=== PATIENT | male | born 1955 | race African-American/Black ===

== ENCOUNTER 2017-05-30 10:20 | Emergency (ER) | payer MEDICARE, OTHER ==
[2017-05-30 10:49] LABS: #Basophils 0.1 thou/uL (0.0-0.2); #Eosinphils 0.2 thou/uL (0.0-0.7); #Lymphocytes 2.9 thou/uL (1.20-3.40); #Monocytes 0.5 thou/uL (0.11-0.59); %Basophils 1.3 % (0.0-1.0); %Eosinophils 2.8 % (0.0-10.0); %Lymphocytes 37.4 % (21.0-51.0); %Monocytes 6.1 % (0.0-10.0); %Neutrophils 52.5 % (42.0-75.0); Mean Corpuscular Hemoglobin 30.6 pg (27.0-31.0); Mean Corpuscular Volume 92.7 fl (80.0-94.0); Mean Platelet Volume 7.1 fL (7.4-10.4); Platelet Count 320 thou/uL (130-400); RBC Distribution Width 12.4 % (11.5-14.5); Red Blood Cell (RBC) Count 4.24 mill/uL (4.70-6.10); White Blood Cell (WBC) Count 7.7 thou/uL (4.8-10.8)
[2017-05-30 11:06] LABS: Bilirubin Negative (Negative); Blood, Urine Negative (Negative); Clarity Clear (Clear); Glucose, Urine (Dipstick) Negative (Negative); Leukocyte Negative (Negative); Nitrite Negative (Negative); Protein, Urine (Dipstick) Negative (Neg-Trace); Specific Gravity, Urine 1.025 (1.005-1.030); Urobilinogen 0.2 mg/dL (0.2-1.0); pH, Urine 5.5 (5.0-9.0)
--- NOTE | 2017-05-30 11:06 | RAD ---
CHEST 1 VIEW: HISTORY: A 61-year-old male with a history of chest pain and epigastric pain for 2 months. History of gastroe sophageal reflux disease and productive cough for 2 months. COMPARISON: 09/26/10. FINDINGS: Heart size is normal. The lungs are clear. No pneumonia, edema, or pleural effusion. IMPRESSION: No acute intrathoracic disease. POS: OFF
[2017-05-30 11:09] LABS: ALT (SGPT) 25 U/L (8-55); AST (SGOT) 20 U/L (5-34); Albumin 4.5 g/dL (3.5-5.0); Alkaline Phosphatase 77 U/L (40-150); Anion Gap 13 mmol/L (10-20); BUN (Urea Nitrogen) 16 mg/dL (8.4-25.7); Bilirubin, Total 0.9 mg/dL (0.2-1.2); Calc. Creatinine Clearance 0 mL/min (70-130); Calcium 9.6 mg/dL (7.8-10.44); Carbon Dioxide 21 mmol/L (22-29); Chloride 106 mmol/L (98-107); Estimated GFR-MDRD 90; Globulin 3.6 g/dL (2.4-3.5); Glucose 102 mg/dL (70-105); Lipase 6 U/L (8-78); Potassium 4.2 mmol/L (3.5-5.1); Protein, Total 8.1 g/dL (6.0-8.3); Sodium 136 mmol/L (136-145)
[2017-05-30 11:13] LABS: CKMB 1.5 ng/mL (0-6.6); Troponin I Less than 0.010 ng/mL (< 0.028)
[2017-05-30] MEDS ORDERED: Pantoprazole 40 MG VIAL ONE (12:02)
--- NOTE | 2017-05-30 13:07 | ULT ---
RIGHT UPPER QUADRANT ULTRASOUND: Date: 05-30-17 History: Abdominal pain. FINDINGS: Left lobe of the liver is not well seen due to adjacent shadowing from bowel gas, but the remainder o f the liver does demonstrate a normal sonographic appearance. Gallbladder has a normal appearance and no gallbladder calculi are seen. There is no gallbladder wall thickening or pericholecystic fluid. The common duct measures 0.3 cm in diameter which is within nor mal limits. Pancreas is obscured by bowel gas. Limited visualized portions of the IVC and right kidney demonstrate a normal sonographic appearance. The right kidney measures 11.3 cm in length. IMPRESSION: 1. No gallbladder calculi are visualized. The common duct is normal in caliber. 2. Nonvisualization of the pancreas, and a portion of the left hepatic lobe is also not well seen. POS: [facility]
== END 2017-05-30 13:51 | disposition home or self-care (01) ==
LOC: ERS 10:20
DX: R10.13 Epigastric pain (principal); R10.11 Right upper quadrant pain; F17.210 Nicotine dependence, cigarettes, uncomplicated; Z79.899 Other long term (current) drug therapy
CPT/HCPCS: 36415; 71045; 76705; 80053; 81003; 82553; 83690; 84484; 85025; 93005; 96374; C9113